=== PATIENT | male | born 2005 | race Caucasian/White ===

== ENCOUNTER 2025-04-30 20:10 | Emergency (ER) | payer OTHER, SELFPAY ==
[2025-04-30 20:20] VITALS: BP 118/68
[2025-04-30 22:19] LABS: Amphetamines Negative (Negative); Barbiturates Negative (Negative); Benzodiazepines Negative (Negative); Marijuana Positive (Negative)
[2025-04-30 22:20] LABS: Buprenorphine Negative (Negative); Cocaine Negative (Negative); Methadone Negative (Negative); Methamphetamines Negative (Negative); Opiates Negative (Negative); Phencyclidine Negative (Negative); Tricyclic Antidepressants Negative (Negative)
--- NOTE | 2025-04-30 22:46 | ED.GENMED ---
History of Present Illness
General
Chief Complaint: Crisis Evaluation
Time Seen by Provider: 04/30/25 22:09
History of Present Illness
History of Present Illness:
20-year-old male without any reported past medical history presenting to the emergency department for concern of psychiatric issue. Patient arrives with parents. Notes for the past few months, patient has been struggling at school. He has been
going to classes, has been up all night, has had some weight loss, also notes some auditory hallucinations. No known psychiatric history. No significant family history of psychiatric disease. Patient denies any septic stressor or incident that
occurred to trigger the symptoms. Denies any fever, chest pain, difficulty breathing. Denies abdominal pain or GI symptoms. Does note that he has got a lymph node to the back of the neck that has been swollen as well as a small cyst on the right
side of his face. Denies any recent fall or trauma. Denies additional acute medical complaints
Phy Exam
Physical Exam
Physical Exam:
General: Well-appearing, no clinical signs of dehydration, nontoxic and in no acute distress
HEENT: protecting airway, small cystic structure to the right temporal region, tender, nonerythematous, no drainage, no fluctuance
Neck: appears supple, small palpable lymph node to the right cervical neck. Nontender.
CV: Normal heart rate, regular rhythm, no evidence of cyanosis
Resp: No accessory muscle use, no increased work of breathing, lungs clear to auscultation bilaterally
Abd: Soft and non-distended, no tenderness to palpation
Extremities: No deformities, no swelling
Neuro: alert, no focal neurologic deficit
: deferred
Rectal: deferred
Psych: Normal affect
Skin: Intact
Course
Orders/Labs/Results
Orders:
Orders
04/30/25 21:10
Crisis Consult Urgent
Reason for Consult: manic behavior,
04/30/25 21:59
Drug Screen, Urine [Urine Drug Abuse Screen] Urgent
Date Specimen was Collected: 04/30/25
Time Specimen was Collected: 21:36
04/30/25 22:33
0.9% Sodium Chloride 1000 ml [Nss] 1,000 ml IV BOLUS
04/30/25 22:42
Complete Blood Count/With Diff Urgent
Comprehensive Metabolic Panel Urgent
TSH Reflex To Free T4 Urgent
Abnormal Lab Results
04/30/25 04/30/25
21:59 22:42
WBC 11.3 H 10^3/uL
(4.8-10.8)
Absolute Neuts (auto) 7.9 H 10^3/uL
(1.4-6.5)
Chloride 113 H mmol/L
(98-107)
U Marijuana (THC) Screen Positive H
(Negative)
04/30/25 22:42
04/30/25 22:42
Vital Signs
Initial and Last Documented VS:
Initial Vital Signs
Temp Pulse Resp Pulse Ox
98.7 F 62 18 100
04/30/25 20:17 04/30/25 20:17 04/30/25 20:17 04/30/25 20:17
Last Documented Vital Signs
Temp Pulse Resp BP Pulse Ox
98.7 F 62 18 118/68 100
04/30/25 20:17 04/30/25 20:17 04/30/25 20:17 04/30/25 20:20 04/30/25 22:49
MDM/Problems Addressed
MDM/Problems Addressed:
20-year-old male presenting to the emergency department for presumed psychiatric symptoms. Vital signs are normal.
On exam patient is resting comfortably, no acute distress or discomfort. He is cooperative. He presently denies any suicidal or homicidal ideations. Denies any active auditory hallucinations. However, symptoms are concerning for psychotic break
with underlying psychiatric diagnosis such as schizophrenia versus bipolar disorder. He is afebrile, nontoxic with lower suspicion for infectious pathology. Family does raise concern regarding lymph node to the neck, however nontender and
isolated. Lower suspicion for systemic process. Will send screening laboratory analysis. Cyst on the face does not appear consistent with an abscess. Advised outpatient follow-up for this, no emergent need for drainage or excision. Crisis did
evaluate patient, recommending inpatient treatment pending medical clearance.
23:50 - Patient is medically clear for psychiatric valuation. Labs unremarkable, hemodynamically stable. Pending bed search.
*Pulse Oximetry
SaO2: 100
*Critical Care Note
Total Time (30-74mins, 75-104mins- exclusive of procedures): Not Applicable
ED Attending Note
-
Portions of this chart may have been created with voice recognition software.� Occasional wrong word or��sound alike� substitutions may have occurred due to the inherent limitations of voice recognition software.
Discharge Plan
Departure
Prescriptions:
No Action
ondansetron 4 mg tablet,disintegrating
4 mg PO Q8H PRN (Reason: nausea and vomiting) 4 Days Qty: 12 0RF
Referrals:
UNKNOWN - PT DOES,NOT KNOW [Family Provider]
Interventions
Interventions:
*Risk Screen - Suicide Last Done: 04/30/25 20:20
*General Assessment Last Done: 04/30/25 20:19
*Neglect/Abuse Screening Last Done: 04/30/25 22:51
*ED- Fall Risk Assessment Last Done: 04/30/25 22:51
*ED COVID-19 Vaccine History Last Done: 04/30/25 20:20
ED-Psychological Assessment Last Done: 04/30/25 22:51
Discharge Date and Time
Print Language: KAZAKH
[2025-04-30 22:48] LABS: % Basophils 0.3 % (0-2); % Eosinophils 0.5 % (0-6); % Immature Granulocytes 0.2 % (0-0.5); % Lymphocytes 24.9 % (20.5-51.1); % Monocytes 4.9 % (1.7-9.3); % Neutrophils 69.2 % (42.2-75.2); Absolute Eosinophils 0.1 10^3/uL (0-0.7); Absolute Lymphocytes 2.8 10^3/uL (1.2-3.4); Absolute Monocytes 0.6 10^3/uL (0.1-0.6); Absolute Neutrophils 7.9 10^3/uL (1.4-6.5); Hematocrit 44.6 % (39.0-52.0); Hemoglobin 15.2 g/dL (13.0-18.0); Mean Corp Hgb Conc. 34.1 g/dL (33.0-37.0); Mean Corpuscular Hgb 28.8 pg (27.0-31.0); Mean Corpuscular Volume 84.5 fL (80.0-94.0); Mean Platelet Volume 10.4 fL (7.4-10.4); Nucleated Red Blood Cells % 0 % (-); Platelet Count 211 10^3/uL (130-400); Red Blood Cell Count 5.28 10^6/uL (4.70-6.10); Red Cell Dist. Width 13.2 % (11.5-14.5); White Blood Cell Count 11.3 10^3/uL (4.8-10.8)
[2025-04-30] MEDS: NSS 1000 IV (22:48)
[2025-04-30 23:11] LABS: ALT (SGPT) 13 U/L (0-50); AST (SGOT) 21 U/L (17-59); Albumin 4.2 g/dl (3.5-5.0); Alkaline Phosphatase 64 U/L (38-126); Blood Urea Nitrogen 10 mg/dl (9-20); Calcium 9.1 mg/dl (8.4-10.2); Carbon Dioxide 22 mmol/L (22-30); Chloride 113 mmol/L (98-107); Glucose 79 mg/dl (70-99); Potassium 4.3 mmol/L (3.5-5.1); Sodium 142 mmol/L (135-145); Total Bilirubin 0.9 mg/dl (0.2-1.3); Total Protein 6.9 g/dl (6.3-8.2); eGFR > 60.00
[2025-04-30 23:40] LABS: TSH Reflex To Free T4 0.95 uIU/ml (0.47-4.68)
[2025-05-01 00:31] VITALS: BP 116/86
[2025-05-01 02:13] VITALS: BP 94/33
== END 2025-05-01 04:21 ==
LOC: EMR 20:10
PROVIDERS: Emergency Medicine; EMERGENCY PHYSICIAN Student in an Organized Health Care Education/Training Program
DX: F23 Brief psychotic disorder (principal); R44.0 Auditory hallucinations; L72.9 Follicular cyst of the skin and subcutaneous tissue, unspecified; Z55.3 Underachievement in school
CPT/HCPCS: 99285; 96360; 80053; 80306; 84443; 85025

== ENCOUNTER → 2025-05-16 07:17 | Outpatient (REF) | payer OTHER, SELFPAY ==
--- NOTE | 2025-05-16 16:51 | EEG.RPT ---
Electroencephalogram Report
Recording
Date of EE05/16/25
Type of EEG: Routine
Length of EEG recordin minutes
Done with Video Recording: Yes
Patient Status: Outpatient
Recording Conditions: Awake and Drowsy
Hyperventilation Performed: Yes
Photic Stimulation Performed: Yes
Report
LESS THAN 1 HOUR EEG INTERPRETATION:
Unremarkable EEG for age
CLINICAL CORRELATION:
A normal EEG does not rule out a diagnosis of epilepsy. If clinical suspicion for seizure persists, a prolonged recording may be warranted.
Clinical correlation is advised.
METHODS:
A 21 channel digitized electroencephalogram (EEG) was performed using the 10/20 international system of electrode placement and one-lead of ECG recorded. The [employer] quantitative EEG system was utilized.
ELECTROENCEPHALOGRAPHER IMPRESSION(S):
Quality of study
Good
Background
There was an unremarkable anterior-posterior voltage gradient of alpha frequency.
With eye opening the background activity changed to a low voltage mixture of frequencies.
There were no significant asymmetries of background activity noted.
Sleep
Drowsiness present
Stage 1 present
Stage 2 present
Hyperventilation
No activation
Photic Stimulation
No activation
ECG
Normal sinus rhythm
== END ==
LOC: EEG 07:17
PROVIDERS: ATTENDING PHYSICIAN Family Medicine
DX: R41.82 Altered mental status, unspecified (principal)
CPT/HCPCS: 95812

== ENCOUNTER → 2025-06-21 06:41 | Outpatient (REF) | payer OTHER, SELFPAY | LOC: PAVMRI 06:41 | PROVIDERS: ATTENDING PHYSICIAN Family Medicine | DX: R41.82 Altered mental status, unspecified (principal) | CPT/HCPCS: 70551 ==